=== PATIENT | female | born 1995 | race Two or more races ===

== ENCOUNTER 2021-07-17 09:56 | Emergency (ER) | payer OTHER ==
[2020-01-26 15:51] VITALS: BP 95/55
[~2021-07-17 09:56] MED LIST: ONDA4TAB12 PO
== END 2021-07-17 12:29 | disposition left against medical advice (07) ==
LOC: ER 09:56
DX: R50.9 Fever, unspecified (principal); M79.10 Myalgia, unspecified site; Z53.21 Procedure and treatment not carried out due to patient leaving prior to being seen by health care provider